=== PATIENT | female | born 1945 | race Caucasian/White ===

== ENCOUNTER → 2016-08-27 | Outpatient (CLI) | payer BC ==
[2016-08-27 11:57] LABS: HEMATOCRIT 37.1 % (37-47); MEAN CELL VOLUME 89.2 fL (80-100); MEAN CORPUSCULAR HEMOGLOBIN 29.6 pg (25-34); MEAN CORPUSCULAR HGB CONC 33.2 g/dl (32-36); MEAN PLATELET VOLUME 10.5 fL (7.4-10.4); PLATELET COUNT 233 K/uL (130-400); RED BLOOD COUNT 4.16 M/uL (4.2-5.4); WHITE BLOOD COUNT 5.84 K/uL (4.8-10.8)
[2016-08-27 12:33] LABS: THYROID STIMULATING HORMONE 1.67 uIu/ml (0.300-4.500)
== END | disposition home or self-care (01) ==
LOC: C.LABPVFM 09:53
PROVIDERS: ATTEND Internal Medicine Endocrinology, Diabetes & Metabolism
DX: E05.00 Thyrotoxicosis with diffuse goiter without thyrotoxic crisis or storm (principal); M79.1 Myalgia

== ENCOUNTER → 2016-10-27 | Outpatient (CLI) | payer BC ==
[2016-10-27 13:04] LABS: BLOOD UREA NITROGEN 17 mg/dl (7-18); BUN/CREATININE RATIO 31.3 (10-20); CARBON DIOXIDE 32 mmol/L (21-32); CHLORIDE 105 mmol/L (98-107); CREATININE 0.53 mg/dl (0.60-1.20); GLUCOSE 90 mg/dl (70-99); POTASSIUM 4.1 mmol/L (3.5-5.1); SODIUM 140 mmol/L (136-145)
[2016-10-27 13:09] LABS: CALCIUM 9.3 mg/dl (8.5-10.1)
[2016-10-27 13:12] LABS: THYROID STIMULATING HORMONE 0.919 uIu/ml (0.300-4.500)
== END | disposition home or self-care (01) ==
LOC: C.LABPVFM 07:43
PROVIDERS: ATTEND Internal Medicine Endocrinology, Diabetes & Metabolism
DX: E05.00 Thyrotoxicosis with diffuse goiter without thyrotoxic crisis or storm (principal)

== ENCOUNTER → 2016-12-02 | Outpatient (CLI) | payer BC ==
[2016-12-02 13:25] LABS: THYROID STIMULATING HORMONE 1.73 uIu/ml (0.300-4.500)
== END | disposition home or self-care (01) ==
LOC: C.LABPVFM 07:44
PROVIDERS: ATTEND Internal Medicine Endocrinology, Diabetes & Metabolism
DX: E05.00 Thyrotoxicosis with diffuse goiter without thyrotoxic crisis or storm (principal)

== ENCOUNTER → 2017-01-21 | Outpatient (CLI) | payer BC ==
--- NOTE | 2017-01-21 13:58 | MAMMOGRAPHY REPORT ---
BILATERAL DIGITAL SCREENING MAMMOGRAM WITH CAD: 01/21/2017 CLINICAL HISTORY: Routine screening. Patient has no complaints. TECHNIQUE: Current study was also evaluated with a Computer Aided Detection (CAD) system. Bilateral CC and MLO views were obtained. COMPARISON: Comparison is made to exams dated: 01/20/2016 mammogram, 01/14/2015 mammogram, 01/11/2014 m ammogram, 01/09/2013 mammogram, 01/07/2012 mammogram, and 01/05/2011 mammogram - [facility]. BREAST COMPOSITION: There are scattered areas of fibroglandular density in both breasts. FINDINGS: No suspicious masses, calcifications, or areas of architectural distortion are noted in ei ther breast. There has been no significant interval change compared to prior exams. IMPRESSION: ACR BI-RADS CATEGORY 1: NEGATIVE There is no mammographic evidence of malignancy. A 1 year screening mammogram is recommended. The pa tient will receive written notification of the results. Approximately 10% of breast cancers are not detected with mammography. A negative mammographic report should not delay biopsy if a clinically suggestive mass is present. Elisha Alberto M.D. /:01/21/2017 12:31:19 [employer]: Violet HART(Servando)(M), letter sent: Normal 1/2 BI-RADS Code: ACR BI-RADS Category 1: Negative
== END | disposition home or self-care (01) ==
LOC: C.MAMM 08:51
PROVIDERS: ATTEND Nurse Practitioner
DX: Z00.00 Encounter for general adult medical examination without abnormal findings (principal); Z12.31 Encounter for screening mammogram for malignant neoplasm of breast; M81.0 Age-related osteoporosis without current pathological fracture

== ENCOUNTER → 2017-03-04 | Outpatient (CLI) | payer BC ==
[2017-03-04 13:56] LABS: BLOOD UREA NITROGEN 13 mg/dl (7-18); BUN/CREATININE RATIO 26.6 (10-20); CALCIUM 9.5 mg/dl (8.5-10.1); CARBON DIOXIDE 29 mmol/L (21-32); CHLORIDE 104 mmol/L (98-107); CHOLESTEROL 217 mg/dl (0-200); CREATININE 0.47 mg/dl (0.60-1.20); GLUCOSE 91 mg/dl (70-99); SODIUM 140 mmol/L (136-145); TRIGLYCERIDES 55 mg/dl (0-150); VERY LOW DENSITY LIPOPROT CALC 11 mg/dl
[2017-03-04 14:00] LABS: CHOLESTEROL/HDL RATIO 2.4; HDL CHOLESTEROL 92 mg/dl; LDL CHOLESTEROL CALCULATED 114 mg/dl
[2017-03-04 14:07] LABS: THYROID STIMULATING HORMONE 1.56 uIu/ml (0.300-4.500)
== END | disposition home or self-care (01) ==
LOC: C.LABPVFM 07:41
PROVIDERS: ATTEND Nurse Practitioner
DX: E05.00 Thyrotoxicosis with diffuse goiter without thyrotoxic crisis or storm (principal); M81.0 Age-related osteoporosis without current pathological fracture; E78.00 Pure hypercholesterolemia, unspecified; J45.909 Unspecified asthma, uncomplicated

== ENCOUNTER → 2017-07-06 | Outpatient (CLI) | payer BC ==
--- NOTE | 2017-07-06 15:25 | DIAGNOSTIC IMAGING REPORT ---
R VENOUS DOPP LOWER EXT UNILAT CLINICAL HISTORY: 72 years-old Female presenting with S89.91XA Right leg [id number]. TECHNIQUE: Real-time grayscale and color and spectral Doppler ultrasound imaging of the veins of the right lower extremity was performed. Compression and augmentation were also utilized. COMPARISON: None. FINDINGS: Right: Common femoral vein: Patent. Greater saphenous vein: Patent. Deep femoral vein: Patent. Femoral vein: Patent. Popliteal vein: Patent. Calf veins: Limited visualization. Other: 3.3 cm right popliteal cyst. IMPRESSION: No evidence of deep venous thrombosis. Electronically signed by: Juancho Manuel M.D. 07/06/2017 3:23 PM Dictated Date/Time: 07/06/2017 3:22 PM
== END | disposition home or self-care (01) ==
LOC: C.ULTR 14:26
PROVIDERS: ATTEND Family Medicine
DX: S89.91XA Unspecified injury of right lower leg, initial encounter (principal); X58.XXXA Exposure to other specified factors, initial encounter

== ENCOUNTER → 2017-07-06 | Outpatient (CLI) | payer BC ==
--- NOTE | 2017-07-06 13:59 | DIAGNOSTIC IMAGING REPORT ---
R KNEE 3 VIEWS CLINICAL HISTORY: 72 years-old Female presenting with Right leg injury. TECHNIQUE: Frontal, lateral, sunrise views of the right knee were obtained. COMPARISON: None. FINDINGS: Osteopenia. No acute fracture or malalignment. Tricompartmental degenerative changes with osteophytosis. Significant medial joint space loss with subchondral sclerosis. Large knee joint effusion. No patellar subluxation. IMPRESSION: 1. 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 2. Large knee joint effusion. Electronically signed by: Juancho Manuel M.D. 07/06/2017 1:57 PM Dictated Date/Time: 07/06/2017 1:56 PM
== END | disposition home or self-care (01) ==
LOC: C.RADPV 13:20
PROVIDERS: ATTEND Family Medicine
DX: S89.91XA Unspecified injury of right lower leg, initial encounter (principal); X58.XXXA Exposure to other specified factors, initial encounter; M89.8X6 Other specified disorders of bone, lower leg; M25.461 Effusion, right knee

== ENCOUNTER → 2017-08-06 | Outpatient (CLI) | payer BC ==
[2017-08-11 00:36] LABS: CA15-3 BREAST ANTIGEN 5819 13 U/mL (<32)
== END | disposition home or self-care (01) ==
LOC: C.LAB1850 14:40
PROVIDERS: ATTEND Internal Medicine Endocrinology, Diabetes & Metabolism
DX: M81.0 Age-related osteoporosis without current pathological fracture (principal); E05.00 Thyrotoxicosis with diffuse goiter without thyrotoxic crisis or storm

== ENCOUNTER → 2017-08-12 | Outpatient (CLI) | payer BC ==
[~2017-08-12] MED LIST: ALBU18002; ASMIN/60 INH; LINICRE; METH-589 PO; TROL10LO
[2017-08-12 13:31] LABS: ALBUMIN 3.6 gm/dl (3.4-5.0); CALCIUM 9.2 mg/dl (8.5-10.1); CREATININE 0.63 mg/dl (0.60-1.20)
== END | disposition home or self-care (01) ==
LOC: C.LABPVFM 09:18
PROVIDERS: ATTEND Internal Medicine Endocrinology, Diabetes & Metabolism
DX: M81.0 Age-related osteoporosis without current pathological fracture (principal)

== ENCOUNTER → 2017-08-16 | Day surgery (SDC) | payer BC ==
[~2017-08-16] VITALS: Ht 160 cm; Wt 64.0 kg
[~2017-08-16] MED LIST changes: +ACETAMINOPHEN 500 MG TAB PO ONE; +PATIENT'S HEIGHT AND/OR WEIGHT NEEDED SCH; +ZOLEDRONIC ACID INJ 5 MG in EMPTY BAG 0 ML IV SCH
[2017-08-16 14:33] VITALS: BP 115/79; PULSE 64; TEMP 36.6; O2SAT 93; Ht 160 cm; Wt 64.0 kg
[2017-08-16 15:08] VITALS: BP 137/71; PULSE 75; TEMP 36.9; O2SAT 97
== END | disposition home or self-care (01) ==
LOC: C.MTU 13:51
PROVIDERS: ATTEND Internal Medicine Endocrinology, Diabetes & Metabolism
DX: M81.0 Age-related osteoporosis without current pathological fracture (principal)

== ENCOUNTER → 2017-08-30 | Outpatient (CLI) | payer BC ==
[~2017-08-30] MED LIST changes: -ACETAMINOPHEN 500 MG TAB PO ONE; -PATIENT'S HEIGHT AND/OR WEIGHT NEEDED SCH; -ZOLEDRONIC ACID INJ 5 MG in EMPTY BAG 0 ML IV SCH
[2017-08-30 14:39] LABS: BLOOD UREA NITROGEN 14 mg/dl (7-18); CALCIUM 8.9 mg/dl (8.5-10.1); CARBON DIOXIDE 29 mmol/L (21-32); CREATININE 0.56 mg/dl (0.60-1.20); GLUCOSE 93 mg/dl (70-99); POTASSIUM 4.3 mmol/L (3.5-5.1); SODIUM 137 mmol/L (136-145)
== END | disposition home or self-care (01) ==
LOC: C.LABPVFM 09:20
PROVIDERS: ATTEND Nurse Practitioner
DX: E78.00 Pure hypercholesterolemia, unspecified (principal); M81.0 Age-related osteoporosis without current pathological fracture